=== PATIENT | male | born 1950 | race Caucasian/White ===

== ENCOUNTER 2018-08-07 23:20 | Inpatient (IN) | payer OTHER ==
[~2018-08-07] VITALS: Ht 185.4 cm; Wt 106.9 kg
[~2018-08-07 23:20] MED LIST: AMLODIPINE PO; ANTIVERT/2525 MG PO; ASPIR 8181 MG PO; BENA PO; CELEXA10 MG PO; GLU500 PO; LORAZEPAM1 MG PO; ZESTRIL20 MG PO
[2018-08-07 23:34] VITALS: Ht 185.4 cm; Wt 106.9 kg
[2018-08-08 01:22] LABS: BASOPHIL % 0.5 % (0-2); CALCIUM 8.4 mg/dL (8.5-10.1); CARBON DIOXIDE 25.3 mmol/L (21-32); CREATININE SERUM 1.6 mg/dL (0.7-1.3); PLATELET COUNT 262 x10^3mcL (130-400); POTASSIUM SERUM 3.4 mmol/L (3.5-5.1); RED CELL DISTRIBUTION WIDTH 13.5 % (11.5-14.5)
[2018-08-08 01:27] LABS: ALBUMIN 3.6 g/dL (3.4-5.0); BILIRUBIN TOTAL 1.91 mg/dL (0.20-1.00)
[2018-08-08 04:48] LABS: microscopic required? NO
[2018-08-08 05:00] LABS: urine erythrocyte NEGATIVE (NEGATIVE)
[2018-08-08 05:08] LABS: CHOLESTEROL/HDL RATIO 3.3; MAGNESIUM 1.9 mg/dL (1.8-2.4); PHOSPHOROUS 4.2 mg/dL (2.5-4.9)
[2018-08-08 05:14] LABS: AMPHETAMINE QUAL UR NONE DETECTED (See below)
[2018-08-08 05:15] VITALS: BP 125/78
[2018-08-08 05:18] LABS: T3 TOTAL 1.18 ng/mL
[2018-08-08 05:24] LABS: FREE T4 0.87 ng/dL (0.76-1.46); T4(THYROXINE) 6.4 ug/dL (4.7-13.3)
[2018-08-08 08:19] VITALS: BP 103/69
[2018-08-08 12:25] VITALS: BP 113/79
[2018-08-08 13:02] VITALS: BP 113/79
== END 2018-08-08 14:46 | disposition home or self-care (01) | DRG 604 ==
LOC: ED 23:20 → DU 08-08 04:20
PROVIDERS: Emergency Medicine; Family Medicine
DX: S20.212A Contusion of left front wall of thorax, initial encounter (principal); N17.0 Acute kidney failure with tubular necrosis; I45.81 Long QT syndrome; E87.6 Hypokalemia; E11.42 Type 2 diabetes mellitus with diabetic polyneuropathy; I10 Essential (primary) hypertension; E78.5 Hyperlipidemia, unspecified; Z79.84 Long term (current) use of oral hypoglycemic drugs; Z87.891 Personal history of nicotine dependence; Z68.31 Body mass index [BMI] 31.0-31.9, adult; W01.0XXA Fall on same level from slipping, tripping and stumbling without subsequent striking against object, initial encounter; Y93.89 Activity, other specified; Y92.017 Garden or yard in single-family (private) house as the place of occurrence of the external cause
CPT/HCPCS: 84439; J1885; J3010; J7030; Q0092; Q9967

== ENCOUNTER 2020-06-17 11:32 | Emergency (ER) | payer OTHER ==
[~2020-06-17] VITALS: Ht 182.9 cm; Wt 100.2 kg
[2020-06-17 12:03] VITALS: Ht 182.9 cm; Wt 100.2 kg
[2020-06-17 12:29] LABS: BASOPHIL % 0.5 % (0-2); PLATELET COUNT 256 x10^3mcL (130-400)
[2020-06-17 12:46] LABS: C REACTIVE PROTEIN 4.9 mg/dL (<=0.9); CARBON DIOXIDE 29.3 mmol/L (21-32); CHLORIDE SERUM 105 mmol/L (98-107); GFR1 > 60 mL/min; GLUCOSE SERUM 201 mg/dL (74-106); POTASSIUM SERUM 3.8 mmol/L (3.5-5.1); SODIUM SERUM 143 mmol/L (136-145)
[2020-06-17 13:12] VITALS: BP 135/76
[2020-06-17 14:00] LABS: ERYTHROCYTE SED RATE 20 mm/hr (0-20)
== END 2020-06-17 13:12 | disposition home or self-care (01) ==
LOC: ED 11:32
PROVIDERS: Specialist
DX: L03.116 Cellulitis of left lower limb (principal); I10 Essential (primary) hypertension; E11.9 Type 2 diabetes mellitus without complications; E78.00 Pure hypercholesterolemia, unspecified; Z88.5 Allergy status to narcotic agent
CPT/HCPCS: 90715; J0696; Q0092